=== PATIENT | male | born 1995 | race Caucasian/White ===

== ENCOUNTER 2017-06-24 10:27 | Emergency (ER) | payer OTHER ==
[2017-06-24] MEDS ORDERED: BACITRACIN 500 UNIT/GM OINT 28.4 GM TUBE TOPICAL ONE (10:40)
[2017-06-24] MEDS ORDERED: DIPH,PERTUS(ACELL)TETVAC-LF 0.5 ML VIAL IM ONE (10:40)
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
[2017-06-24 11:38] VITALS: BP 129/68; PULSE 113; RESP 18; TEMP 101.8
== END 2017-06-24 11:43 | disposition home or self-care (01) ==
LOC: EC 10:27
DX: T24.212A Burn of second degree of left thigh, initial encounter (principal); T31.0 Burns involving less than 10% of body surface; Z23 Encounter for immunization; X16.XXXA Contact with hot heating appliances, radiators and pipes, initial encounter; Y93.55 Activity, bike riding
CPT/HCPCS: 16020; 90471; 90715; 99283

== ENCOUNTER 2019-04-23 19:54 | Emergency (ER) | payer OTHER ==
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
--- NOTE | 2019-04-23 22:26 | ED ---
URI HPI - General Chief Complaint: Upper Respiratory Infection Stated Complaint: Cough Time Seen by Provider: 04/23/19 22:08 Source: patient, RN notes reviewed, old records reviewed Mode of arrival: ambulatory Limitations: no limitations - History of Present Illness Initial Comments: This is a 23-year-old male the ER for evaluation. Patient evaluation regarding cough or congestion. Nonsmoker with no medical history no travel history no known sick contacts. Patient is a cough for a week with no improvement. Patient denies chest pain denies any other complaints no fevers. MD Complaint: cough, nasal congestion -: week(s) Severity: mild Severity scale (1-10): 2 Consistency: constant Improves With: nothing Worsens With: activity Associated Symptoms: denies other symptoms - Related Data Previous Rx's Medication Instructions Recorded Bacitracin Oint 28.4 gm TOPICAL BID #1 tube 06/24/17 Ibuprofen [Motrin] 600 mg PO Q6HR PRN #30 day 06/24/17 Azithromycin [Zithromax Z-pack] 0 mg PO DIRECTED #1 pack 04/23/19 Benzonatate [Tessalon Perles] 100 mg PO TID PRN #15 capsule 04/23/19 Allergies Allergy/AdvReac Type Severity Reaction Status Date / Time No Known Allergies Allergy Verified 04/23/19 20:42 Review of Systems ROS Statement: Those systems with pertinent positive or pertinent negative responses have been documented in the HPI. ROS Other: All systems not noted in ROS Statement are negative. Past Medical History Past Medical History: No Reported History History of Any Multi-Drug Resistant Organisms: None Reported Past Surgical History: Orthopedic Surgery Past Psychological History: No Psychological Hx Reported Smoking Status: Never smoker Past Alcohol Use History: None Reported Past Drug Use History: None Reported General Exam Limitations: no limitations General appearance: alert, in no apparent distress Head exam: Present: atraumatic, normocephalic, normal inspection Eye exam: Present: normal appearance, PERRL, EOMI. Absent: scleral icterus, conjunctival injection, periorbital swelling ENT exam: Present: normal exam, mucous membranes moist Neck exam: Present: normal inspection. Absent: tenderness, meningismus, lymphadenopathy Respiratory exam: Present: normal lung sounds bilaterally. Absent: respiratory distress, wheezes, rales, rhonchi, stridor Cardiovascular Exam: Present: regular rate, normal rhythm, normal heart sounds. Absent: systolic murmur, diastolic murmur, rubs, gallop, clicks GI/Abdominal exam: Present: soft, normal bowel sounds. Absent: distended, tenderness, guarding, rebound, rigid Extremities exam: Present: normal inspection, full ROM, normal capillary refill. Absent: tenderness, pedal edema, joint swelling, calf tenderness Back exam: Present: normal inspection Neurological exam: Present: alert, oriented X3, CN II-XII intact Psychiatric exam: Present: normal affect, normal mood Skin exam: Present: warm, dry, intact, normal color. Absent: rash Course Vital Signs 04/23/19 20:39 Temperature 98.6 F Pulse Rate 84 Respiratory 17 Rate Blood Pressure 148/97 O2 Sat by Pulse 98 Oximetry Medical Decision Making - Medical Decision Making 23 male the distress currently for presentation of cough, chest x-rays negative, will treat for bronchitis. Patient can be discharged home - Radiology Data Radiology results: report reviewed (Chest x-rays negative for acute disease), image reviewed Disposition Clinical Impression: Upper respiratory infection, Bronchitis Disposition: HOME SELF-CARE Condition: Good Instructions (If sedation given, give patient instructions): Upper Respiratory Infection (ED) Prescriptions: Benzonatate [Tessalon Perles] 100 mg PO TID PRN #15 capsule PRN Reason: Cough Azithromycin [Zithromax Z-pack] 0 mg PO DIRECTED #1 pack Is patient prescribed a controlled substance at d/c from ED?: No Referrals: None,Stated [Primary Care Provider] - 1-2 days
[2019-04-23 22:52] VITALS: BP 123/89; PULSE 89; RESP 16; TEMP 98.9
== END 2019-04-23 22:52 | disposition home or self-care (01) ==
LOC: EC 19:54
DX: J06.9 Acute upper respiratory infection, unspecified (principal); J40 Bronchitis, not specified as acute or chronic
CPT/HCPCS: 71046; 99284